=== PATIENT | female | born 1965 ===

== ENCOUNTER 2022-09-25 06:57 | Day surgery (SDC) | payer MEDICARE, MEDICAID ==
[2022-09-24 10:19] VITALS: BMI 19.7
== END 2022-09-25 07:30 | disposition home or self-care (01) ==
LOC: SDC 06:57
PROVIDERS: ATTEND Internal Medicine
DX: Z12.11 Encounter for screening for malignant neoplasm of colon (principal); R13.12 Dysphagia, oropharyngeal phase; Z79.899 Other long term (current) drug therapy; Z88.0 Allergy status to penicillin; Z88.8 Allergy status to other drugs, medicaments and biological substances; Z53.9 Procedure and treatment not carried out, unspecified reason